=== PATIENT | female | born 1980 | race Caucasian/White ===

== ENCOUNTER 2018-01-15 14:33 | Emergency (ER) | payer OTHER ==
[~2018-01-15] VITALS: Ht 162.6 cm; Wt 63.5 kg
[~2018-01-15 14:33] MED LIST: AZIT250 PO; BENZ100A PO; HYDHCL25 PO; MULVITMINE; OXYM.05NI; PROM25 PO; PSECHLCR PO; SULTRIDS PO; [UNRECOGNIZED DRUG - REMARK] PO
[2018-01-15] MEDS ORDERED: GABA300 PO (15:07)
[2018-01-15] MEDS ORDERED: Neurontin 300300 MG PO (15:10)
== END 2018-01-15 15:28 | disposition home or self-care (01) ==
LOC: ER 14:33
DX: Z76.0 Encounter for issue of repeat prescription (principal); Z88.1 Allergy status to other antibiotic agents; Z79.899 Other long term (current) drug therapy; F41.9 Anxiety disorder, unspecified; F17.210 Nicotine dependence, cigarettes, uncomplicated
CPT/HCPCS: 99281

== ENCOUNTER 2018-04-23 18:30 | Emergency (ER) | payer OTHER ==
[~2018-04-23] VITALS: Ht 162.6 cm; Wt 64.9 kg
[~2018-04-23 18:30] MED LIST changes: +GABA300 PO; +Neurontin 300300 MG PO
[2018-04-23 19:17] LABS: Source, Urine Clean Catch
[2018-04-23] MEDS ORDERED: Macrobid 100 M100 MG PO (19:20)
[2018-04-23 19:21] LABS: Bilirubin, Urine Neg (Neg); Blood, Urine 1+ (Neg); Glucose Qualitative, Urine 3+ (Neg); Ketones, Urine Neg (Neg); Leukocyte Esterase, Urine 2+ (Neg); Nitrite, Urine Neg (Neg); Protein, Urine 1+ (Neg); Specific Gravity, Urine 1.025 (1.003-1.022); Urobilinogen, Urine 1+ (Normal)
[2018-04-23 19:27] LABS: Appearance, Urine Cloudy (Clear); Color, Urine Yellow (P-Yellow)
[2018-04-23 19:28] LABS: White Blood Cells, Urine 50-100 /hpf (0-5)
[2018-04-23 19:30] LABS: Bacteria Many /hpf; Mucus Light (0-Heavy); Squamous Epithelial Cells Few /hpf (Few)
[2018-04-23 19:32] LABS: Oval Fat Bodies Rare /lpf
[2018-04-23 19:36] LABS: Transitional Epithelial Cells Rare /hpf (0-Rare)
== END 2018-04-23 19:41 | disposition home or self-care (01) ==
LOC: ER 18:30
PROVIDERS: Emergency Medicine
DX: N39.0 Urinary tract infection, site not specified (principal); E11.65 Type 2 diabetes mellitus with hyperglycemia; F41.9 Anxiety disorder, unspecified; I10 Essential (primary) hypertension; F17.210 Nicotine dependence, cigarettes, uncomplicated; Z88.0 Allergy status to penicillin; Z79.899 Other long term (current) drug therapy; Z87.442 Personal history of urinary calculi
CPT/HCPCS: 81001; 81025; 87077; 87086; 87186; 99283

== ENCOUNTER 2018-08-19 07:32 | Emergency (ER) | payer OTHER ==
[~2018-08-19] VITALS: Ht 162.6 cm; Wt 63.5 kg
[~2018-08-19 07:32] MED LIST changes: +Macrobid 100 M100 MG PO
[2018-08-19] MEDS ORDERED: GABA300 PO ×2 (07:56→08:34)
[2018-08-19] MEDS ORDERED: Budeprion Xl300 MG (07:56)
[2018-08-19] MEDS ORDERED: ALBU90OI INH (08:34)
== END 2018-08-19 08:52 | disposition home or self-care (01) ==
LOC: ER 07:32
DX: Z76.0 Encounter for issue of repeat prescription (principal); Z88.0 Allergy status to penicillin; Z79.899 Other long term (current) drug therapy; F41.9 Anxiety disorder, unspecified; F17.200 Nicotine dependence, unspecified, uncomplicated
CPT/HCPCS: 99281

== ENCOUNTER 2019-02-09 03:16 | Emergency (ER) | payer OTHER ==
[~2019-02-09] VITALS: Ht 162.6 cm; Wt 65.8 kg
[~2019-02-09 03:16] MED LIST changes: +ALBU90OI INH; +Budeprion Xl300 MG
[2019-02-09 04:19] LABS: Source, Urine Clean Catch
[2019-02-09 04:22] LABS: Bilirubin, Urine Neg (Neg); Blood, Urine Neg (Neg); Glucose Qualitative, Urine 4+ (Neg); Ketones, Urine Neg (Neg); Leukocyte Esterase, Urine Neg (Neg); Nitrite, Urine Neg (Neg); Protein, Urine Neg (Neg); Urobilinogen, Urine NORM (Normal); pH, Urine 6.5 (5.0-8.0)
[2019-02-09 04:23] LABS: Appearance, Urine Clear (Clear); Color, Urine Yellow (P-Yellow)
[2019-02-09] MEDS ORDERED: METF500 PO (05:52)
[2019-02-09] MEDS ORDERED: Flagyl500 MG PO (05:52)
== END 2019-02-09 06:15 | disposition home or self-care (01) ==
LOC: ER 03:16
PROVIDERS: Emergency Medicine
DX: R35.0 Frequency of micturition (principal); E11.65 Type 2 diabetes mellitus with hyperglycemia; Z88.0 Allergy status to penicillin; Z79.899 Other long term (current) drug therapy; F17.200 Nicotine dependence, unspecified, uncomplicated; F41.9 Anxiety disorder, unspecified
CPT/HCPCS: 81003; 82947; 99283; A9270-GY

== ENCOUNTER 2019-02-18 23:36 | Emergency (ER) | payer OTHER ==
[~2019-02-18] VITALS: Ht 162.6 cm; Wt 65.8 kg
[~2019-02-18 23:36] MED LIST changes: +Flagyl500 MG PO; +METF500 PO
[2019-02-18 23:53] LABS: Source, Urine Clean Catch
[2019-02-19 00:05] LABS: Bilirubin, Urine Neg (Neg); Blood, Urine Neg (Neg); Glucose Qualitative, Urine 4+ (Neg); Ketones, Urine Neg (Neg); Leukocyte Esterase, Urine Neg (Neg); Nitrite, Urine Pos (Neg); Protein, Urine 1+ (Neg); Urobilinogen, Urine NORM (Normal)
[2019-02-19 00:12] LABS: Appearance, Urine Clear (Clear); Color, Urine Yellow (P-Yellow)
[2019-02-19 00:13] LABS: Bacteria Few /hpf; Red Blood Cells, Urine 0-2 /hpf (0-2); Squamous Epithelial Cells Few /hpf (Few); White Blood Cells, Urine 0-2 /hpf (0-5)
[2019-02-19] MEDS ORDERED: FLUC100 PO (02:13)
== END 2019-02-19 02:29 | disposition home or self-care (01) ==
LOC: ER 23:36
PROVIDERS: Physician Assistant
DX: B37.3 Candidiasis of vulva and vagina (principal); F41.9 Anxiety disorder, unspecified; F17.200 Nicotine dependence, unspecified, uncomplicated; Z88.0 Allergy status to penicillin; Z79.899 Other long term (current) drug therapy; Z79.84 Long term (current) use of oral hypoglycemic drugs
CPT/HCPCS: 81001; 87086; 99283